=== PATIENT | female | born 1960 | race Caucasian/White ===

== ENCOUNTER 2022-01-28 12:58 | Outpatient (CLI) | payer BC, SELFPAY ==
--- NOTE | ~2022-01-28 | DEXA_ITS ---
Bone Density Report Name: RC FLORIAN Age: 61 Sex: Female Ethnicity: White Date of : 1960 Indication: postmenopausal; screening for osteoporosis; hysterectomy; Referring Provider: SUZAN, SHIVA Nelson Study: Bone densitometry was performed. Exam Date: January 28, 2022 Accession number: [id number] Bone Density: Region BMD T-score Z-score Classification AP Spine(L1-L4) 0.788 -2.4 -0.8 Osteopenia Femoral Neck (Left) 0.560 -2.6 -1.2 Osteoporosis Total Hip (Left) 0.729 -1.7 -0.7 Osteopenia World Health Organization criteria for BMD impression classify patients as: Normal (T-score at or above -1.0), Osteopenia (T-score between -1.0 and -2.5), or Osteoporosis (T-score at or below -2.5). 10-year Fracture Risk: FRAX not reported because: Some T-score for Spine Total or Hip Total or Femoral Neck at or below -2.5 Clinical Information Provided by Patient: Has used the following medications: Vitamin D, Calcium, alendronate Has the following medical conditions: Hysterectomy Patient maximum height was 67 Menopause Age: 45 Drinks caffeinated beverages Onset of menses at age 12 Number of children 3 Impression: The patient has osteoporosis, based on the Left Femoral Neck T-score. Discussion: INCREASED RISK OF FRACTURE. BONE DENSITY IS UNDESIRABLY LOW AT ONE OR MORE SKELETAL SITES, CONSISTENT WITH POSTMENOPAUSAL OSTEOPOROSIS. This patient's lowest T-score meets the World Health Organization's (WHO) criteria for osteoporosis at one or more sites (T-score -2.5 or below). In untreated patients, the risk of osteoporotic fracture increases approximately two-fold for each 1.0 SD decrease in T-score. Low bone density is not the only risk factor for fracture; also consider factors such as patient's age, frailty or poor health, risk of falling, risk of injury, previous osteoporotic fracture, family history of osteoporosis, cigarette smoking, low body weight, etc. Not everyone with low bone mineral density has osteoporosis; osteomalacia and other metabolic bone disorders should also be considered. Patients who have osteoporosis should be evaluated for specific diseases and conditions (secondary causes) that may cause or contribute to bone loss. The [place] [employer]ocrinologists (AACE) and National Osteoporosis Foundation (NOF) recommend pharmacologic intervention for all postmenopausal women whose T-score is in this range. The patient should follow a healthful lifestyle (good nutrition with adequate calcium and vitamin D, and appropriate weight-bearing exercise). Follow-Up: Consider a repeat BMD and Vertebral Fracture Assessment (VFA) exam in 2 years or sooner if medically necessary, to reassess this patient's status. Reported by: STACEY on 01/28/2022 1:30:00 PM. Reviewed, holland
== END 2022-01-28 12:59 | disposition home or self-care (01) ==
PROVIDERS: PCP Internal Medicine; Visit Provider Internal Medicine
DX: Z78.0 Asymptomatic menopausal state (principal); M85.88 Other specified disorders of bone density and structure, other site; M81.0 Age-related osteoporosis without current pathological fracture; M85.852 Other specified disorders of bone density and structure, left thigh
CPT/HCPCS: 77080

== ENCOUNTER 2022-02-18 13:43 | Emergency (ER) | payer BC, SELFPAY ==
--- NOTE | ~2022-02-18 | XR_ITS ---
XR finger 5th RT min 2V DATE: 02/18/2022 14:08 INDICATION: Injury 10 days ago TECHNIQUE: 3 views COMPARISON: None FINDINGS: And proximal 0.9 mm dorsally displaced intra-articular fracture of the dorsal base of the d istal phalanx of the digit with flexion deformity at the proximal interphalangeal joint. No other fracture or dislocation. IMPRESSION: Avulsion of the dorsal base of the distal phalanx with associated flexion deformity at th e distal interphalangeal joint Reviewed, dictated and finalized at location A. IMPRESSION: Avulsion of the dorsal base of the distal phalanx with associated f lexion deformity at the distal interphalangeal joint
[2022-02-18 13:50] VITALS: BP 140/99; PULSE 74; RESP 18; TEMP 36.9; O2SAT 99
[2022-02-18 13:55] VITALS: BP 140/90
--- NOTE | 2022-02-18 14:18 | ED.UPPEXIN ---
HPI - Extremity Injury (Upper) General Chief Complaint: Extremity Injury, Upper Stated Complaint: right hand pinky finger Time Seen by Provider: 02/18/22 14:10 Source: patient, RN notes reviewed and old records reviewed Mode of arrival: ambulatory Limitations: no limitations History of Present Illness HPI narrative: 61-year-old female who presents to [facility] care with complaints of injury to her right fifth finger when playing volleyball 12 days ago. Patient states that she was struck by the ball and she has decreased mobility in right 5th finger with pain, swelling, and some reported numbness. Patient reports that she can't straighten her finger. She states that she has been wearing a metal finger splint to her finger from home and has been taking Ibuprofen for her pain. MD complaint: injury to: right and finger (5th finger) Onset (ago): day(s) (12) Other injuries: none Severity scale (1-10): 2 Related Data Home Medications Medication Instructions Recorded Confirmed alendronate 70 mg tablet 70 mg PO MONTHLY 02/18/22 02/18/22 atorvastatin 40 mg tablet 40 mg PO DAILY 02/18/22 02/18/22 fenofibrate 160 mg tablet 160 mg PO DAILY 02/18/22 02/18/22 Allergies Allergy/AdvReac Type Severity Reaction Status Date / Time No Known Allergies Allergy Unverified 07/19/17 10:57 Review of Systems Review of Systems: CONSTITUTIONAL: Denies fever, chills, or sweats. EYES: Denies visual changes, redness, or discharge. ENT: Denies rhinorrhea, congestion, sore throat, or otalgia. CARDIOVASCULAR: Denies chest pain, palpitations, or edema. RESPIRATORY: Denies cough or dyspnea. GASTROINTESTINAL: Denies abdominal pain, nausea, vomiting, or diarrhea. GENITOURINARY: Denies dysuria or hematuria. SKIN: Denies rash or itching. MUSCULOSKELETAL: Denies back pain, pain with swelling to right 5th finger, or myalgia. NEUROLOGIC: Denies headache, numbness, or weakness. PSYCHIATRIC: Denies anxiety or depression. All systems reviewed & are unremarkable except as noted in HPI and below PMFSH Past Medical History Medical History (Updated 02/18/22 @ 15:31 by Kathi Deras NP) Hyperlipidemia Osteopenia Surgical History Surgical History (Updated 02/18/22 @ 14:20 by Kathi Deras NP) H/O: hysterectomy Previous section Comments At time of signature, agree with nursing past medical, surgical, social and family history. There is no relevant family history pertinent to the presenting complaint Exam Narrative: GENERAL: Well-appearing, well-nourished, and in no acute distress. HEAD: Normocephalic, atraumatic. EYES: PERRLA and EOMI. ENT: Nares clear, no rhinorrhea or epistaxis. Mucous membranes moist.TM's normal with good light reflex, throat pink with no lesions or exudates or tonsil swelling. NECK: Supple. no lymphadenopathy CHEST: Clear to auscultation. No respiratory distress.SAO2 99% on room air HEART: Regular rate and rhythm. No murmur heard. Normal peripheral pulses. ABDOMEN: Soft, nontender, nondistended, normal active bowel sounds. EXTREMITIES: Normal range of motion. No edema.Exception noted to right 5th finger with decreased mobility swelling and pain with patient unable to straighten finger and reports some numbness to finger. She has been wearing metal finger splint.and injury occurred 12 days ago. SKIN: Warm, dry, no rash. NEURO: No focal deficits. Alert and oriented x3. Course Course Level of Care: Express Care Visit Vital Signs Vital signs: Vital Signs Temperature 36.9 C 02/18/22 13:50 Pulse Rate 74 02/18/22 13:50 Respiratory Rate 18 02/18/22 13:50 Blood Pressure 140/99 H 02/18/22 13:50 Pulse Oximetry 99 02/18/22 13:50 Temperature 36.9 C 02/18/22 13:50 Pulse Rate 74 02/18/22 13:50 Respiratory Rate 18 02/18/22 13:50 Blood Pressure 140/99 H 02/18/22 13:50 Pulse Oximetry 99 02/18/22 13:50 MDM - Extremity Injury (Upper) Differential Diagnosis Differential diagnosis: Likely fi
== END 2022-02-18 15:05 | disposition home or self-care (01) ==
PROVIDERS: Emergency Provider Registered Nurse; PCP Internal Medicine
DX: S62.636A Displaced fracture of distal phalanx of right little finger, initial encounter for closed fracture (principal); W21.06XA Struck by volleyball, initial encounter; Y93.68 Activity, volleyball (beach) (court); M21.241 Flexion deformity, right finger joints; E78.5 Hyperlipidemia, unspecified; M85.80 Other specified disorders of bone density and structure, unspecified site
CPT/HCPCS: 73140; 99214; G0463

== ENCOUNTER 2022-08-20 09:00 | Outpatient (RCR) | payer OTHER, SELFPAY ==
--- NOTE | 2022-08-02 15:42 | OTOPEVAL1 ---
Assessment and note entered by Joni Mcintyre, FRIEDA/Thang, CHT Evaluation Information Assessment Status Evaluation Diagnosis Right small finger stiffness Subjective Information Patient fractured her right small finger in Feb. She had some therapy, but this was cut short due to COVID. She now has a stiff PIP joint that has difficulties flexing, which makes gripping and writing difficult. She notes difficulties due to the finger being in the way and bumping it because it sticks out due to being unable to flex into her palm like the rest of her fingers. Reported Pain Level Pain Score 1: Self Report Additional Pain Score Comments Patient typically has no pain, just some stiffness . Has some pain with gross gripping especially with gross gripping. Assessment OT Clinical Summary Billie is a 61 year-old right handed female who is referred to outpatient OT with a stiff right small finger PIP joint following a bony mallet finger. She will benefit from skilled OT services for use of thermal modalities, manual therapy, ROM, strengthening, and splinting to improve functional flexion of the right small finger to increase functional gripping during ADLs. Plan of Care Interventions Therapeutic Exercise,Manual Therapy,Therapeutic Activities,Hot Pack/Cold Pack,Ultrasound,Paraffin OT Services Indicated Yes Treatment Frequency and 2x/week for 3 weeks Duration These treatments will address the objective and functional deficits as defined above. The patient will be advanced safely and appropriately in order for the patient to progress towards his/her prior level of function. Additional exercises will be introduced and as well as a comprehensive home exercise program upon discharge, if needed, ?to ensure carryover of functional gains achieved in the clinic. This treatment plan has been reviewed and agreement upon by the patient.
--- NOTE | 2022-08-20 09:39 | OTOPDC ---
Assessment and note entered by Joni Mcintyre, FRIEDA/Thang, CHT Evaluation Information Assessment Status Discharge Diagnosis Right small finger stiffness Subjective Information Billie has been participating in outpatient hand therapy x3 weeks. Today she is reporting that she is more comfortable using the finger and is now incorporating the finger into daily activities vs. leaving it sticking out all the time. She reports she is now able to comfortably lift a gallon of milk, carrying grocery bags, reaching into the dryer to grab clothes, and opening heavy doors. She reports no functional limitations at this time. Reported Pain Level Pain Score 0: Self Report Additional Pain Score Comments No pain at rest. 2/10 pain localized to the small finger PIP joint with active ROM. Reports increased stiffness and soreness upon waking up. After getting moving the pain reduces to 1-2/10. Assessment OT Clinical Summary Patient presents today for OT re-evaluation following 6 sessions focused on improving right small finger ROM and strength to facilitate improved functional gripping on her dominant hand. ROM has returned to functional limits in the small finger. She is now able to comfortably touch the palm when making a fist. Small finger DIP extension lag remained unchanged since the start of care, at -40 degrees. [employer] strength improved from 39 lbs. to 49 lbs. At this time she is independent with all home exercises to continue to work on functional ROM and strengthening. Plan of Care OT Services Indicated No
== END 2022-08-20 11:12 | disposition home or self-care (01) ==
LOC: ANHOT 09:00
PROVIDERS: PCP Internal Medicine
DX: M25.641 Stiffness of right hand, not elsewhere classified (principal)
CPT/HCPCS: 97018; 97110; 97140; 97165

== ENCOUNTER 2023-03-18 00:24 | Day surgery (SDC) | payer OTHER, SELFPAY ==
[2023-03-07 13:11] VITALS: BMI 28.3
--- NOTE | 2023-03-17 15:16 | PM.HPGS ---
History of Present Illness History of Present Illness Consent: Risks, benefits, and alternatives have been discussed and questions answered. Patient agrees to proceed with procedure. Chief complaint: neoplasm screening Narrative: Billie Mccartney is a 62 year old female referred for colon cancer screening. Review of Systems Review of Systems: All systems reviewed & are unremarkable except as noted in HPI and below PMFSH Past Medical History Medical History Hyperlipidemia Osteopenia Overweight Surgical History Surgical History H/O: hysterectomy Previous section Social History Social History Smoking status: Never smoker Alcohol intake: never Substance use type: does not use Living arrangements: with family Spiritual care concerns: No Meds Home Medications and Allergies Home Medications Medication Instructions Recorded Confirmed Type alendronate 70 mg tablet 70 mg PO MONTHLY 02/18/22 03/07/23 History atorvastatin 40 mg tablet 40 mg PO DAILY 02/18/22 03/07/23 History fenofibrate 160 mg tablet 160 mg PO DAILY 02/18/22 03/07/23 History aspirin 81 mg capsule 81 mg PO HS 03/07/23 03/07/23 History multivitamin 1 tablet PO DAILY 03/07/23 03/07/23 History Allergies Allergy/AdvReac Type Severity Reaction Status Date / Time No Known Allergies Allergy Verified 03/18/23 06:22 Exam Const: General: alert Orientation/consciousness: patient oriented x3 Resp: Auscultation: clear to auscultation bilaterally Cardio: Rhythm: regular rhythm GI: GI Palp: Yes Soft to palpation and No Tenderness to palpation present (GI) Neuro: General: patient oriented x3 Assessment and Plan Assessment and plan (1) Colon cancer screening: Code(s): Z12.11 - Encounter for screening for malignant neoplasm of colon Status: Acute Assessment and Plan: Colonoscopy with possible biopsy or polypectomy or cautery or injection of substances.
[2023-03-18 06:23] VITALS: BP 167/103; PULSE 93; RESP 20; TEMP 36.4; O2SAT 100
--- NOTE | 2023-03-18 06:28 | P.PNAN_ITS ---
Anes - Initial Pre Proc Eval Procedure: Operation Date: 03/18/23 07:30 Proposed Procedures p Screening Colonoscopy - Surendra Christopher MD Date/Time: 03/18/23 06:28 Surgeon: Surendra Christopher MD Pre Op Diagnosis: neoplasm screening Patient Data Age: 62 Gender: F Height: 1.68 m Weight: 79.5 kg Last Vital Signs Temp 36.4 C 03/18/23 06:23 Pulse 93 03/18/23 06:23 Resp 20 03/18/23 06:23 BP 167/103 H 03/18/23 06:23 Pulse Ox 100 03/18/23 06:23 O2 Del Method Room Air 03/18/23 06:23 Allergies Allergy/AdvReac Type Severity Reaction Status Date / Time No Known Allergies Allergy Verified 03/18/23 06:22 Home Medications Medication Instructions Recorded Confirmed Type alendronate 70 mg tablet 70 mg PO MONTHLY 02/18/22 03/07/23 History atorvastatin 40 mg tablet 40 mg PO DAILY 02/18/22 03/07/23 History fenofibrate 160 mg tablet 160 mg PO DAILY 02/18/22 03/07/23 History aspirin 81 mg capsule 81 mg PO HS 03/07/23 03/07/23 History multivitamin 1 tablet PO DAILY 03/07/23 03/07/23 History Patient hx anesthesia problems: none Family hx anesthesia problems: none Results Review: All pre-operative results and documents have been reviewed as part of the pre- operative evaluation. [facility] Past Medical History Medical History (Updated 03/18/23 @ 06:28 by Isaías Porter MD) Hyperlipidemia Osteopenia Overweight Surgical History Surgical History H/O: hysterectomy Previous section Social History Social History Smoking status: Never smoker Alcohol intake: never Substance use type: does not use Living arrangements: with family Spiritual care concerns: No Anes - Eval Final PreProcedure Day of Procedure 03/18/23 06:28 Patient weight: overweight Heart: regular rate and rhythm Lungs: clear to auscultation Airway: Mallampati scale class II Neurological: alert and oriented Last oral intake: >/= 8 hours ASA classification: II Emergent: no Anesthetic plan: proceed Anesthesia type and monitoring: general GIVS and standard monitoring Results Review: All pre-operative results and documents have been reviewed as part of the pre-op erative evaluation. Informed Consent: The patient's anesthetic plan and its attendant risks and benefits were discussed with the patient/family/POA. Questions were solicited and answers provided to the satisfaction of the patient/family/POA.
[2023-03-18] MEDS: LACTATED RINGERS 1,000 ML 150 ML IV CONT (06:33)
[2023-03-18 07:47] VITALS: BP 123/76; PULSE 85; RESP 20; O2SAT 95
[2023-03-18 07:57] VITALS: BP 133/86; PULSE 82; RESP 20; O2SAT 97
[2023-03-18 08:07] VITALS: BP 140/100; PULSE 72; RESP 20; O2SAT 99
== END 2023-03-18 08:14 | disposition home or self-care (01) ==
PROVIDERS: PCP Internal Medicine; Visit Provider Internal Medicine Gastroenterology
PROC: 0DJD8ZZ Inspection of Lower Intestinal Tract, Via Natural or Artificial Opening Endoscopic (ICD-10-PCS; CPT 45378; principal; 2023-03-18 07:30)
DX: Z12.11 Encounter for screening for malignant neoplasm of colon (principal); K57.30 Diverticulosis of large intestine without perforation or abscess without bleeding; E78.5 Hyperlipidemia, unspecified; M85.80 Other specified disorders of bone density and structure, unspecified site; Z79.82 Long term (current) use of aspirin
CPT/HCPCS: 45378; J2704; J7120

== ENCOUNTER 2023-10-04 15:06 | Emergency (ER) | payer OTHER, SELFPAY ==
[2023-10-04 15:16] VITALS: BP 146/98; PULSE 100; RESP 16; TEMP 37.1; O2SAT 97
--- NOTE | 2023-10-04 15:28 | ED.URI ---
HPI - URI/Sore Throat General Chief Complaint: Upper Respiratory Infection Stated Complaint: Fever/Congestion Time Seen by Provider: 10/04/23 15:28 Source: patient, RN notes reviewed and old records reviewed Mode of arrival: ambulatory Limitations: no limitations History of Present Illness HPI Narrative: 63 year old female who presents to [facility] care with complaints of 10 -11 day history of cough, has felt feverish,stuffy, post nasal drainage, feeling fatigued. Patient reports that she had a couple days when she was feeling better but for past 3 days she has had increased cough, and post nasal drainag. Patient reports that she has been taking Multisymptom cold medication and she has been taking Tussin DM for the cough but not resting well at night due to cough. Patient reports that 2 teenage grandchildren she is around daily recently tested positive for influenza.Patient reports that she has taken multiple covid tests which have been negative. MD elicited complaint: cough and sore throat Onset (ago): day(s) (10-11 days) Pain scale (0-10): 4 Able to tolerate fluids by mouth: Yes Exacerbating factors: exertion and supine positioning Treatments prior to arrival: other (cough syrup) Related Data Home Medications Medication Instructions Recorded Confirmed alendronate 70 mg tablet 70 mg PO MONTHLY 02/18/22 03/07/23 atorvastatin 40 mg tablet 40 mg PO DAILY 02/18/22 03/07/23 fenofibrate 160 mg tablet 160 mg PO DAILY 02/18/22 03/07/23 aspirin 81 mg capsule 81 mg PO HS 03/07/23 03/07/23 multivitamin 1 tablet PO DAILY 03/07/23 03/07/23 Allergies Allergy/AdvReac Type Severity Reaction Status Date / Time No Known Allergies Allergy Verified 10/04/23 15:12 Review of Systems Review of Systems: CONSTITUTIONAL: Reports malaise, chills, sweats, has felt feverish EYES: Denies visual changes, redness, or discharge. ENT: Reports rhinorrhea, congestion, sinus pain, no otalgia and sore throat. CARDIOVASCULAR: Denies chest pain, palpitations, or edema. RESPIRATORY: Reports cough.? Denies dyspnea. reports breast bone soreness when she coughs. GASTROINTESTINAL: Denies abdominal pain, nausea, vomiting, diarrhea SKIN: Denies rash or itching. MUSCULOSKELETAL: Denies myalgia. NEUROLOGIC: reports headache. All systems reviewed & are unremarkable except as noted in HPI and below PMFSH Past Medical History Medical History Hyperlipidemia Osteopenia Overweight Surgical History Surgical History H/O: hysterectomy History of hand surgery repair of fracture right 5th finger History of hip replacement Previous section Social History Social History Smoking status: Never smoker Alcohol intake: never Substance use type: does not use Living arrangements: with family Spiritual care concerns: No Comments At time of signature, agree with nursing past medical, surgical, social and family history. There is no relevant family history pertinent to the presenting complaint Exam Narrative: GENERAL: Well-appearing, well-nourished, and in no acute distress. HEAD: Normocephalic EYES: PERRLA, conjunctivae clear ENT: Nares clear, turbinates edematous and erythematous, clear discharge. Mucous membranes moist. TM pearly abdi with dull light reflex bilaterally; no tragal tenderness. Oropharynx erythematous without lesions. Tonsils not enlarged and without exudate, no drooling, no hoarseness, no trismus, uvula midline.post nasal drainage noted. NECK: Supple. No lymphadenopathy CHEST: Clear to auscultation, breath sounds equal. No wheezing, rhonchi, rales, or stridor. No respiratory distress, speaks in full sentences.harsh cough noted SAO2 97% on room air HEART: Regular rate and rhythm. No murmur heard. SKIN: Warm, dry, no rash. NEURO: Alert and ansley
== END 2023-10-04 15:46 | disposition home or self-care (01) ==
PROVIDERS: Emergency Provider Registered Nurse; PCP Internal Medicine
DX: J32.9 Chronic sinusitis, unspecified (principal); R05.1 Acute cough; E78.5 Hyperlipidemia, unspecified; Z20.822 Contact with and (suspected) exposure to COVID-19
CPT/HCPCS: 87426; 87804; 99213; G0463

== ENCOUNTER 2024-04-02 08:11 | Outpatient (CLI) | payer OTHER, SELFPAY ==
--- NOTE | ~2024-04-02 | DEXA_ITS ---
Bone Density Report Name: RC FLORIAN Age: 63 Sex: Female Ethnicity: White Date of : 1960 Indication: osteopenia; hysterectomy; Referring Provider: SUZAN, SHIVA Nelson Study: Bone densitometry was performed. Exam Date: April 02, 2024 Accession number: [id number] Bone Density: Region BMD T-score Z-score Classification AP Spine(L1-L4) 0.726 -2.9 -1.2 Osteoporosis Femoral Neck (Left) 0.539 -2.8 -1.3 Osteoporosis Total Hip (Left) 0.764 -1.5 -0.3 Osteopenia World Health Organization criteria for BMD impression classify patients as: Normal (T-score at or above -1.0), Osteopenia (T-score between -1.0 and -2.5), or Osteoporosis (T-score at or below -2.5). 10-year Fracture Risk: FRAX not reported because: Some T-score for Spine Total or Hip Total or Femoral Neck at or below -2.5 Previous Exams: Region Exam Age BMD T-score BMD Change BMD Change Date g/cm2 vs Baseline vs Previous AP Spine (L1-L4) 04/02/2024 63 0.726 -2.9 -0.061 (-7.8%) -0.062 (-7.8%) 01/28/2022 61 0.788 -2.4 0.001 (0.1%) 0.045 (6.0%)* 08/24/2018 58 0.743 -2.8 -0.044 (-5.6%) -0.044 (-5.6%) 08/02/2016 55 0.787 -2.4 Total Hip(Left) 04/02/2024 63 0.764 -1.5 -0.040 (-5.0%) 0.034 (4.7%)* 01/28/2022 61 0.729 -1.7 -0.074 (-9.3%) -0.079 (-9.8%) 08/24/2018 58 0.808 -1.1 0.005 (0.6%) 0.005 (0.6%) 08/02/2016 55 0.804 -1.1 *Denotes significance at 95% confidence level, LSC for AP Spine = 0.022 g/cm2, LSC for Total Hip = 0.027 g/cm2 Clinical Information Provided by Patient: Has used the following medications: Fosamax (i.e. alendronate), Vitamin D, Calcium Has the following medical conditions: Hysterectomy Patient maximum height was 67.0 Menopause Age: 45 Drinks caffeinated beverages Onset of menses at age 12 Number of children 3 Impression: The patient has osteoporosis, based on the Total Spine T-score. The BMD for the AP Spine (L1-L4) decreased, changing by -7.8% since the last DXA exam. Discussion: INCREASED RISK OF FRACTURE. BONE DENSITY IS UNDESIRABLY LOW AT ONE OR MORE SKELETAL SITES, CONSISTENT WITH POSTMENOPAUSAL OSTEOPOROSIS. This patient's lowest T-score meets the World Health Organization's (WHO) criteria for osteoporosis at one or more sites (T-score -2.5 or below). In untreated patients, the risk of osteoporotic fracture increases approximately two-fold for each 1.0 SD decrease in T-score. Low bone density is not the only risk factor for fracture; also consider factors such as patient's age, frailty
== END 2024-04-02 08:12 | disposition home or self-care (01) ==
LOC: ANHIMG 08:12
PROVIDERS: PCP Internal Medicine; Visit Provider Internal Medicine
DX: M81.0 Age-related osteoporosis without current pathological fracture (principal); M85.88 Other specified disorders of bone density and structure, other site; Z96.641 Presence of right artificial hip joint
CPT/HCPCS: 77080

== ENCOUNTER 2025-02-20 07:52 | Outpatient (CLI) | payer MEDICARE, SELFPAY ==
--- NOTE | 2025-02-20 | EST_ITS ---
Patient Info Name: Billie Mccartney Age: 64 years : 1960 Gender: Female Ht: 65 in Wt: 174 lbs BSA: 1.92 m2 HR: 84 bpm BP: 168 / 92 mmHg Exam Date: 02/20/2025 8:02 AM Patient Status: O Admit Date: 02/20/2025 Exam Type: CA stress test treadmill w NM A nuclear stress test was performed. Staff Referring Physician: Miller Flores Attending Provider: Miller Flores Exercise Technologist: Sol Castle Summary 1. 1. Negative Ray exercise stress test for ischemic ST changes by ECG criteria. 2. 2. Reduced functional capacity, achieving 6 METs of workload. 3. 3. Appropriate HR response to exercise. 4. 4. Appropriate HR recovery at 1 minute post exercise. 5. 5. Nuclear scan to follow and will be reported separately. Please correlate with it. 6. 6. Patient informed of the above results. Protocol: Ray Stress ECG Details Stage: REST Duration (min): 1 min : 36 sec Speed (mph): 0.0 Grade (%): 0 HR (bpm): 84 SBP (mmHg): 168 DBP (mmHg): 92 METS: --- Stage: REST Duration (min): 7 min : 45 sec Speed (mph): 0.0 Grade (%): 0 HR (bpm): 92 SBP (mmHg): 168 DBP (mmHg): 92 METS: --- Stage: STAGE 1 Duration (min): 1 min : 0 sec Speed (mph): 1.7 Grade (%): 10 HR (bpm): 113 SBP (mmHg): 168 DBP (mmHg): 92 METS: --- Stage: STAGE 1 Duration (min): 2 min : 0 sec Speed (mph): 1.7 Grade (%): 10 HR (bpm): 126 SBP (mmHg): 168 DBP (mmHg): 92 METS: --- Stage: STAGE 1 Duration (min): 3 min : 0 sec Speed (mph): 1.7 Grade (%): 10 HR (bpm): 132 SBP (mmHg): 187 DBP (mmHg): 93 METS: --- Stage: STAGE 2 Duration (min): 1 min : 0 sec Speed (mph): 2.5 Grade (%): 12 HR (bpm): 138 SBP (mmHg): 187 DBP (mmHg): 93 METS: --- Stage: STAGE 2 Duration (min): 1 min : 0 sec Speed (mph): 2.5 Grade (%): 12 HR (bpm): 138 SBP (mmHg): 187 DBP (mmHg): 93 METS: --- Stage: RECOVERY Duration (min): 0 min : 59 sec Speed (mph): 0.0 Grade (%): 0 HR (bpm): 129 SBP (mmHg): 192 DBP (mmHg): 91 METS: --- Stage: RECOVERY Duration (min): 1 min : 59 sec Speed (mph): 0.0 Grade (%): 0 HR (bpm): 113 SBP (mmHg): 192 DBP (mmHg): 91 METS: --- Stage: RECOVERY Duration (min): 2 min : 59 sec Speed (mph): 0.0 Grade (%): 0 HR (bpm): 108 SBP (mmHg): 178 DBP (mmHg): 94 METS: --- Stage: RECOVERY Duration (min): 3 min : 59 sec Speed (mph): 0.0 Grade (%): 0 HR (bpm): 99 SBP (mmHg): 178 DBP (mmHg): 94 METS: --- Stage: RECOVERY Duration (min): 4 min : 59 sec Speed (mph): 0.0 Grade (%): 0 HR (bpm): 108 SBP (mmHg): 178 DBP (mmHg): 94 METS: --- Stage: RECOVERY Duration (min): 5 min : 32 sec Speed (mph): 0.0 Grade (%): 0 HR (bpm): --- SBP (mmHg): 178 DBP (mmHg): 94 METS: --- Rest HR: 92 bpm Peak HR: 138 bpm Rest Sys BP: 168 mmHg Peak Sys BP: 192 mmHg Max Pred HR: 155 bpm % Max Pred HR: 89 % Target HR: 132 bpm Max RPP: 26,496 bpm*mmHg Baron Score: -2 Termination Reason: Reached target heart rate or workload Cardiac Symptoms: Shortness of breath Max ST Seg Deviation: 1.10 mm Total Time: 4 min : 0 sec Rest Johnson BP: 92 mmHg Peak Johnson BP: 91 mmHg Angina Score: None Total METS: 6.5 Resting ECG Sinus rhythm, inferior infarct, age indeterminate. Stress ECG No ST changes. Arrhythmias None. Report Signatures
--- NOTE | ~2025-02-20 | NM_ITS ---
EXAMINATION: NM stress w perf spect multi DATE: 02/20/2025 10:13 INDICATION: Chest pain TECHNIQUE: Rest images were obtained following intravenous administration of 11.5 mCi Tc99m tetrofosm in ([employer]). The patient performed an exercise activity. At peak exercise, 34.5 mCi Tc99m tetrofosmi n ([employer]) was administered intravenously, and stress images were obtained. Data was reconstructed i nto short axis and horizontal and vertical long axis SPECT images. Gated SPECT images were also obtai tanya. COMPARISON: None. FINDINGS: There is normal left ventricular perfusion without definite evidence of reversible or fixed perfusion abnormality to suggest ischemia or infarction. There is normal left ventricular chamber size, wall motion and ejection fraction. Left ventricular ejection fraction measures >70%. IMPRESSION: 1. Normal myocardial perfusion at rest and during stress. 2. Left ventricular ejection fraction measuring >70%. Reviewed, dictated and finalized at location A.
--- OUTSIDE RECORDS SUMMARY | 2025-02-20 08:00 | XMS_ITS | Clinical Summary ---
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 Gender Identity Not on file Sexual Orientation Not on file Plan of Treatment Health Maintenance Due Date Last Done Comments Hepatitis C Virus (HCV) Screening 1960 TdaP Immunization 1960 Pap Smear 1980 Cervical Cancer Screening (CCS) 1989 HPV/Cotest 1989 Cologuard 2004 Colonoscopy 2004 Colorectal Cancer Screening 2004 Immunochemical Fecal Occult Blood 2004 Pneumococcal Immunization (5 0+ years) (1 of 1 - PCV) 2009 Zoster Immunization (1 of 2) 2009 SARS-COV-2 Immunization ( - 2023- season) 2024 Influenza Immunization (#1) 03/25/202505/25, 04/30/2020, 06/01/2018 Respiratory Syncytial Virus (RSV) Immunization (Adult) (1 - 1-dose 75+ series) 2034 Hepatitis B Immunization Aged Out No longer eligible based on patient's age to complete this topic Human Papillomavirus (HPV) Immunization Aged Out No longer eligible b ased on patient's age to complete this topic Meningococcal Immunization (ACWY) Aged Out No longer eligible b ased on patient's age to complete this topic Rotavirus Immunization Aged Out No lo nger eligible based on patient's age to complete this topic
--- OUTSIDE RECORDS SUMMARY | 2025-02-20 08:00 | XMS_ITS | Referral Summary ---
Author Organization [facility] Address [address] [place] [address] Care Team Providers Care Senior Bi Developer Name Role Phone Miller Flores MD Primary Care Provider [phone] Seth Kowk MD Unavailable [phone] Encounters Date Type Department Care Team Description 01/15/2025 7:35 AM CDT - 01/15/2025 11:59 PM CDT Hospital Encounter [facility] Medical [facility] Orthopedics and Sports Medicine [address] [place] [address] [place] [phone] Discharge Disposition: Discharge to home or self care 01/15/2025 11:00 AM CDT Office Visit [facility] Medical [facility] Orthopedics and Sports Medicine [address] [place] [address] [place] [phone] Steh Kwok MD Primary osteoarthritis of right knee (Primary Dx); Right knee pain, unspecified chronicity from Last 3 Months Allergies No known active allergies Medications fenofibrate (TRIGLIDE) 160 mg tablet Take 1 tablet (160 mg total) by mouth nightly Active alendronate (FOSAMAX) 70 mg tablet Take 1 tablet (70 mg total) by mouth every 7 days Mondays12/21/2019 Active cyclobenzaprine (FLEXERIL) 10 mg tablet Take 1 tablet (10 mg total) by mouth daily as needed Active multivitamin capsule Take 1 capsule by mouth daily Active aspirin 81 mg chewable tablet Take 1 tablet (81 mg total) by mouth daily Active calcium phosphate trib/vit D3 (CALTRATE GUMMY BITES ORAL) Take 2 capsules by mouth daily Active rosuvastatin (CRESTOR) 40 mg tablet 09/22/2022 Active Active Problems Problem Noted Date Diagnosed Date Trochanteric bursitis, right hip 10/08/2024 History of arthroplasty of right hip 10/04/2024 Mallet fracture, closed 02/22/2022 Overview (02/22/2022): Added automatically from request for surgery [id number] Primary localized osteoarthritis of pelvic regio n and thigh 02/19/2022 Overweight 11/30/2021 Spasm of back muscles 11/17/2021 Osteoarthritis 06/08/2021 Essential hypertension 02/06/2021 Family history of pulmonary embolism 11/23/2018 Osteoporosis 11/23/2018 Steatosis of liver 11/23/2018 Vitamin D deficiency 11/23/2018 Well adult health check 11/23/2018 Hypertriglyceridemia 02/28/2018 Resolved Problems Problem Noted Date Diagnosed Date Resolved Date Primary osteoarthritis of right hip 04/30/2020 10/04/2024 Overview (04/30/2020): Added automatically from request for surgery [id number] Immunizations Immunization Administration Dates Next Due Influenza, Quadrivalent, Spl it, Preservative Free, Intramuscular 06/08/2021,04/30/2020,06/01/2018 Social History Tobacco Use Types Packs/Day Years Used Date Smoking Tobacco: Never Smokeless Tobacco: Never Alcohol Use Standard Drinks/Week Comments Yes 0 (1 standard drink = 0.6 oz pur e alcohol) AUDIT-C Answer Date Recorded Q1: How often do you have a drink containing alc ohol? Monthly or less 03/02/2022 Q2: How many drinks containi ng alcohol do you have on a typical day when you are drinking? 1 or 2 03/02/2022 Q3: How often do you have si x or more drinks on one occasion? 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 Gender Identity Not on file Sexual Orientation Not on file Last Filed Vital Signs Vital Sign Reading Time Taken Comments Blood Pressure 149/103 10/08/2024 9:27 AM CDT Pulse 82 10/08/2024 9:27 AM CDT Temperature 36.2 C (97.2 F) 03/02/2022 12:25 PM CDT Respiratory Rate 15 03/02/2022 1:05 PM CDT Oxygen Saturation 98% 03/02/2022 1:05 PM CDT Inhaled Oxygen Concentration - - Weight 80.3 kg (177 lb) 01/15/2025 11:03 AM CDT Height 166.4 cm (5' 5.5) 01/15/2025 11:03 AM CD T Body Mass Index 29.01 01/15/2025 11:03 AM CDT Plan of Treatment Not on file Medical Devices Implanted Type Area Survey Rodman Device Identifier Shelf Expiration Date Model / Serial / Lot Depuy Orthopaed[employer] Inc [id number] [place] 52mm Sector Hip Shell Acetabular Gription Sterile Latex Free - [id number] Implanted:Qty: 1 on 05/14/2020 by Seth Kwok MD at [facility] Right: Hip [employer]uy [employer]opa[employer] Inc 02/21/2030 [id number] / / [id number] Depuy [employer] Inc 1217-25-500 [place] 6.5mm 25mm Acetabular Cancellous Screw Bone Sterile - [id number] Implanted:Qty: 1 on 05/14/2020 by Seth Kwok MD at [facility] Right: Hip [employer]uy [employer] 01/21/2030 1217-25-500 / / [id number] Depuy [employer] [id number] [place] 52mm 36mm Hip Neutral Liner Acetabular Altrx Sterile Latex Free - [id number] Implanted:Qty: 1 on 05/14/2020 by Seth Kwok MD at [facility] Right: Hip [employer]uy [employer] 09/21/2024 [id number] / / [id number] Depuy [employer] Inc [id number] Actis Collared Hip 07/07 6 Standard Offset Stem Femoral - [id number] Implanted:Qty: 1 on 05/14/2020 by Seth Kwok MD at [facility] Right: Hip [employer] 04/23/2030 [id number] / / [id number] Depuy [employer] Inc [id number] Articul/Chepe 36mm Cementless Hip +1.5mm 12/14 Taper Head Femoral Latex Free - [id number] Implanted:Qty: 1 on 05/14/2020 by Seth Kwok MD at [facility] Right: Hip [employer]uy [employer] 04/23/2025 [id number] / / [id number] Depuy Mitek Quickanchor Plus Orthocord 2-0 V-5 Mini [place] Suture [id number] - [id number] Implanted:Qty: 1 on 03/02/2022 by Ailyn Zavala MD at [facility] Right: [place] Depuy Mitek [id number] 04/23/2024 [id number] / / [id number] Explanted Type Area Survey Rodman Device Identifier Shelf Expiration Date Model / Serial / Lot [employer] Christine .062in 9in 2 Trocar 2 End Thread Wire Fixation Sterile [id number] - [id number] Explanted:Qty: 1 on 03/02/2022 by Ailyn Zavala MD at [facility] Right: Little Finger [employer] 08/15/2025 [id number] / / [id number] Procedures Procedure Name Priority Date/Time Associated Diagnosis Comments [place] ARTHROCENTESIS ASPIR&/INJ MAJOR JT/BURSA W/O US Routine 01/15/2025 11:00 AM CDT Primary osteoarthritis of right knee XR KNEE RIGHT 4 OR MORE VIEWS Schedule Routine, Read Routine (OP Routine) 01/15/2025 10:46 AM CDT Right knee pain, unspecified chronicity DIAGNOSTIC MAMMOGRAM BILATERAL W ALEC Schedule Routine, Read Routine (OP Routine) 02/09/2024 12:09 PM CDT Mass of right breast, unspecified quadrant from Last 3 Months or Most Recently Relevant to Health Maintenance Results * [place] ARTHROCENTESIS ASPIR&/INJ MAJOR JT/BURSA W/O US (01/15/2025 11:00 AM CDT) Narrative Seth Kwok MD - 01/15/2025 11:00 AM CDT Seth Kwok MD 01/15/2025 3:25 PM Large Joint (Hip, Knee, Shoulder) Injection: R knee Performed by: Seth Kwok MD Authorized by: Seth Kwok MD Large Joint Injection/Aspiration: Consent Given by: Patient Site marked: the procedure site was marked Timeout: prior to procedure the correct patient, procedure, and site was verified Verbal consent obtained: Yes Supporting Documentation: Indications: Pain Procedure Details: Location: Knee Site: R knee Needle Size: 22 G Approach: Anterolateral Ultrasound guided: No Fluroscopic guidance: No Medications: 80 mg methylPREDNISolone acetate 80 mg/mL; 3 mL lidocaine 20 mg/mL (2 %) Patient tolerance: Patient tolerated the procedure well with no immediate complications Seth Kwok MD IN CLINIC/BEDSIDE ORDERA BLES Final Result * XR Knee Right 4 or More Views (01/15/2025 10:46 AM CDT) Anatomical Region Laterality Modality Lower Extremities, Knee Right Digital Radiography Narrative 01/15/2025 3:23 PM CDT Moderate right knee osteoarthritis with advanced patellofemoral arthritis Seth Kwok MD IMG XR PROCEDURES Edited Result - Final * Diagnostic Mammogram Bilateral W Alec (02/09/2024 12:09 PM CDT) Anatomical Region Laterality Modality Breast Bilateral Mammography 02/09/2024 1:21 PM CDT Impressions 02/09/2024 1:21 PM CDT 1. No evidence of malignancy in either breast. 2. No mammographic or sonographic correlate for area of clinical concern in right breast. In the absence of imaging findings, any decision for further intervention should be based on the clinical assessment. OVERALL FINAL ASSESSMENT: BI-RADS Category 1: Negative. RECOMMENDATION: 1. Annual screening mammography is recommended. 2. Clinical follow-up is recommended. Electronically signed by: Sugar King M.D. Narrative 02/09/2024 1:21 PM CDT EXAMINATION: BILATERAL DIGITAL DIAGNOSTIC MAMMOGRAM INCLUDING CAD AND BILATERAL DIGITAL BREAST TOMOSYNTHESIS; RIGHT BREAST SONOGRAM HISTORY: 63-year-old woman with area of palpable concern in the right breast. COMPARISON: Multiple prior studies, most recently 01/14/2023 and dating back to 01/11/2015. TECHNIQUE: Full field digital mammographic views of BOTH breasts were performed, including computer aided detection (CAD) and BILATERAL digital breast tomosynthesis (DBT). Directed ultrasound evaluation of the RIGHT breast was performed. BREAST PARENCHYMAL COMPOSITION: There are scattered areas of fibroglandular density. MAMMOGRAM FINDINGS: There is no suspicious mass, distortion, or microcalcification in either breast. There has been no significant interval change from the previous study. No mammographic abnormality is seen in the upper inner quadrant of the right breast, in location of clinical concern indicated by a triangle skin marker. SONOGRAM FINDINGS: Targeted ultrasound was performed in the area of clinical concern in the right breast at 2:00 11 cm from the nipple. No sonographic abnormality is seen. Procedure Note Sugar King MD - 02/09/2024 EXAMINATION: BILATERAL DIGITAL DIAGNOSTIC MAMMOGRAM INCLUDING CAD AND BILATERAL DIGITAL BREAST TOMOSYNTHESIS; RIGHT BREAST SONOGRAM HISTORY: 63-year-old woman with area of palpable concern in the right breast. COMPARISON: Multiple prior studies, most recently 01/14/2023 and dating back to 01/11/2015. TECHNIQUE: Full field digital mammographic views of BOTH breasts were performed, including computer aided detection (CAD) and BILATERAL digital breast tomosynthesis (DBT). Directed ultrasound evaluation of the RIGHT breast was performed. BREAST PARENCHYMAL COMPOSITION: There are scattered areas of fibroglandular density. MAMMOGRAM FINDINGS: There is no suspicious mass, distortion, or microcalcification in either breast. There has been no significant interval change from the previous study. No mammographic abnormality is seen in the upper inner quadrant of the right breast, in location of clinical concern indicated by a triangle skin marker. SONOGRAM FINDINGS: Targeted ultrasound was performed in the area of clinical concern in the right breast at 2:00 11 cm from the nipple. No sonographic abnormality is seen. IMPRESSION: 1. No evidence of malignancy in either breast. 2. No mammographic or sonographic correlate for area of clinical concern in right breast. In the absence of imaging findings, any decision for further intervention should be based on the clinical assessment. OVERALL FINAL ASSESSMENT: BI-RADS Category 1: Negative. RECOMMENDATION: 1. Annual screening mammography is recommended. 2. Clinical follow-up is recommended. Electronically signed by: Sugar King M.D. Miller Flores MD IMG MAMMO PROCEDURES Final Result from Last 3 Months or Most Recently Relevant to Health Maintenance Insurance [place]REF[place] Advance Directives For more information, please contact: [phone] * Full Code (Latest Code Status on File) Date Activated Date Inactivated Comments 05/14/2020 12:03 PM 05/15/2020 7:42 PM Care Teams Senior Bi Developer Relationship Specialty Start Date End Date Miller Flores MD PCP - General 05/25/18 Seth Kwok MD Surgeon Orthopedic Surgery 05/15/20
--- OUTSIDE RECORDS SUMMARY | 2025-02-20 08:00 | XMS_ITS | Clinical Summary ---
Author Organization [facility] Address [address] [place] [address] Care Team Providers Care Temperature Logging Operator Name Role Phone Miller Flores MD Primary Care Provider Seth Kwok MD Unavailable Allergies No known active allergies Medications fenofibrate [...] (02/22/2022): Added automatically from request for surgery [id number] Primary localized osteoarthritis of pelvic regio n [...] (04/30/2020): Added automatically from request for surgery [id number] Encounters Date Type Department Care Team Description 01/15/2025 11:00 AM CDT Office Visit [facility] Medical [facility] Orthopedics and Sports Medicine [address] [place] [address] [address] [place] [phone] Seth Kwok MD Primary osteoarthritis of right knee (Primary Dx); Right knee pain, unspecified chronicity 01/15/2025 7:35 AM CDT - 01/15/2025 11:59 PM CDT Hospital Encounter [facility] Orthopedics and Sports Medicine [address] [place] [address] [address] [place] [phone] Discharge Disposition: Discharge to home or self care from Last 3 Months Immunizations Immunization Administration Dates Next Due Influenza, Quadrivalent, Spl it, Preservative Free, Intramuscular 06/08/2021,04/30/2020,06/01/2018 Surgical History Surgery Date Site/Laterality Comments HYSTERECTOMY 07/25/2001 - 07/24/2002 SECTION TONSILLECTOMY Medical History Medical History Date Comments Anemia Hypercholesteremia Osteoporosis Arthritis Hypertension GERD (gastroesophageal reflux disease) Depression Mallet fracture, closed right sm all finger Motion sickness Anxiety Family History Medical History Relation Name Comments Dementia Father Hypertension Father Hypothyroidism Father Breast cancer Mother Depression Mother Diabetes Mother Arthritis Other Bleeding Disorder Other Cancer Other Clotting disorder Other Diabetes Other Heart disease Other Hypertension Other Mental illness Other Relation Name Status Comments Father Alive Mother Other Social History Tobacco Use Types Packs/Day Years [...] on file 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 Gender Identity Not on file Sexual Orientation Not on file Obstetrics History Para Term AB IAB SAB Ectopic Multiple Livin g Live Births 3 3 3 Date Outcome GA Total Labor Labor/2nd/3rd Weight Sex Type Anes PTL Awa A1 A5 Name Clin Term Term Term Last Filed Vital Signs Vital Sign Reading [...] 01/15/2025 11:03 AM CDT Plan of Treatment Health Maintenance Due Date Last Done Comments Colon Cancer Screening-Colonoscopy 1960 Hepatitis C Screening 1960 Osteoporosis Screening-Bone Density Scan 1960 DTaP/Tdap/Td Vaccine (1 - Tdap) 1970 Hepatitis B Screening 1977 Pneumococcal vaccine 65+ (1 of 2 - PCV) 1978 Zoster Vaccine (1 of 2) 2009 Depression Screening 04/30/2021 04/30/2020 Fall Risk Assessment 03/02/2023 03/02/2022 Well Visit 65+ 2024 Breast Cancer Screening-Mammogram 02/08/2025 02/09/2024, 01/14/2023, 11/25/2021, Additional history exists Influenza Vaccine (#1) 2025 , 04/30/2020, 06/01/2018 Medical Devices Implanted Type Area Business Unit Controller Device Identifier Shelf Expiration Date Model / Serial / Lot Depuy Orth[employer]ed[employer] Inc [id number] [place] 52mm Sector Hip Shell Acetabular Gription Sterile Latex Free - [id number] Implanted:Qty: 1 on 05/14/2020 by Seth Kwok MD at [facility] Right: Hip [employer]uy [employer] 02/21/2030 [id number] / / [id number] Depuy [employer] Inc 1217-25-500 [place] 6.5mm 25mm Acetabular Cancellous Screw Bone Sterile - [id number] Implanted:Qty: 1 on 05/14/2020 by Seth Kwok MD at [facility] Right: Hip [employer]uy [employer] 01/21/2030 1217-25-500 / / [id number] Depuy [employer] Inc [id number] [place] 52mm 36mm Hip Neutral Liner Acetabular Altrx Sterile Latex Free - [id number] Implanted:Qty: 1 on 05/14/2020 by Seth Kwok MD at [facility] Right: Hip [employer]uy [employer] 09/21/2024 [id number] / / [id number] Depuy Orth[employer]ed[employer] Inc [id number] Actis Collared Hip 12/14 6 Standard Offset Stem Femoral - [id number] Implanted:Qty: 1 on 05/14/2020 by Seth Kwok MD at [facility] Right: Hip [employer]uy [employer] Inc 04/23/2030 [id number] / / [id number] Depuy [employer] Inc [id number] Articul/Chepe 36mm Cementless Hip +1.5mm 12/14 Taper Head Femoral Latex Free - [id number] Implanted:Qty: 1 on 05/14/2020 by Seth Kwok MD at [facility] Right: Hip [employer]uy [employer] 04/23/2025 [id number] / / [id number] Depuy Mitek Quickanchor Plus Orthocord 2-0 V-5 Mini [place] Suture [id number] - [id number] Implanted:Qty: 1 on 03/02/2022 by Ailyn Zavala MD at [facility] Right: Little [place]inger Depuy [employer]k [id number] 04/23/2024 [id number] / / [id number] Explanted Type Area Business Unit Controller Device Identifier Shelf Expiration Date Model / Serial / Lot [employer] Christine .062in 9in 2 Trocar 2 End Thread Wire Fixation Sterile [id number] - [id number] Explanted:Qty: 1 on 03/02/2022 by Ailyn Zavala MD at [facility] Right: Little [place]inger [employer] 08/15/2025 [id number] / / [id number] Procedures Procedure Name Priority Date/Time Associated Diagnosis Comments [place] ARTHROCENTESIS ASPIR&/INJ MAJOR JT/BURSA W/O US Routine [...] Recently Relevant to Health Maintenance Results * [place] ARTHROCENTESIS ASPIR&/INJ MAJOR JT/BURSA W/O US (01/15/2025 [...] to Health Maintenance Insurance [place]ET[place] PREFERRED [facility] [place] AET[place] PREFERRED AETNA MEDICARE Advance Directives For more information, please contact: [phone] * Full Code (Latest Code Status on File) Date Activated Date Inactivated Comments 05/14/2020 12:03 PM 05/15/2020 7:42 PM Care Teams Temperature Logging Operator Relationship Specialty Start Date End Date Miller lFores MD PCP - General 05/25/18 Seth Kwok MD Surgeon Orthopedic Surgery 05/15/20
--- OUTSIDE RECORDS SUMMARY | 2025-02-20 08:00 | XMS_ITS | Encounter Summary ---
Author Organization [facility] Healthcare Address [address] [place] [address] Care Team Providers Care Heliotherapist Name Role Phone Miller Flores MD Primary Care Provider [phone] Seth Kwok MD Unavailable [phone] Encounter Details Date Type Department Care Team (Late st Contact Info) Description 02/18/2020 Telephone [facility] [address] [place] [id number] Arielle Cantrell RT Social History Tobacco Use Types Packs/Day Years Used Date Smoking Tobacco: Never Smokeless Tobacco: Never Alcohol Use Standard Drinks/Week Comments Yes 0 (1 standard drink = 0.6 oz pur e alcohol) Comments Unknown Sex and Gender Information Value Date Recorded Sex Assigned at Not on file 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
== END 2025-02-20 07:53 | disposition home or self-care (01) ==
PROVIDERS: PCP Internal Medicine; Visit Provider Internal Medicine
DX: R07.9 Chest pain, unspecified (principal)
CPT/HCPCS: 78452; 93017; A9502